=== PATIENT | male | born 1945 | race Caucasian/White ===

== ENCOUNTER 2023-11-15 13:13 | Inpatient (IN) | payer MEDICARE ==
[~2023-11-15] VITALS: Ht 172.7 cm; Wt 55.8 kg
[2023-11-15 19:03] VITALS: BP 160/83; TEMP 98.3; O2SAT 94
[2023-11-15] MEDS ORDERED: ACET-868 PO (19:30)
[2023-11-15] MEDS ORDERED: OMEP40CA21 PO (19:30)
[2023-11-15] MEDS ORDERED: SIMV10TA98 PO (19:30)
[2023-11-15] MEDS ORDERED: ONDA4TAB11 SL (19:30)
[2023-11-15] MEDS ORDERED: DONE10TA44 PO (19:30)
[2023-11-15] MEDS ORDERED: IPRA3AMP22 IH (19:30)
[2023-11-15] MEDS ORDERED: TIOT4MIS2 IH (19:30)
[2023-11-15] MEDS ORDERED: TAMS-12 PO (19:30)
[2023-11-15] MEDS ORDERED: AMLO2.5T2 PO (19:30)
[2023-11-15] MEDS ORDERED: MOME13HF IH (19:30)
[2023-11-15 20:07] VITALS: O2SAT 93
[2023-11-15] MEDS ORDERED: ONDANSETRON HCL/PF 4 MG/2 ML VIAL IVP PRN (20:30)
[2023-11-15] MEDS ORDERED: ACETAMINOPHEN 325 MG TABLET PO PRN (20:30)
[2023-11-15] MEDS ORDERED: MAG HYDROX/AL HYDROX/SIMETH 30 ML UDC PO PRN (20:30)
[2023-11-15] MEDS: ENOXAPARIN SODIUM 40 MG/0.4 ML DISP.SYRIN SQ SCH (21:27)
[2023-11-16] VITALS (16 sets, daily range): BP systolic 119–155; BP diastolic 65–82; TEMP 98–99; O2SAT 91–96
[2023-11-16] MEDS: ALBUTEROL HALF STRENGTH 1.25 MG/3 ML VIAL.NEB NEB SCH (00:20)
[2023-11-16] MEDS: ACETYLCYSTEINE 20% SOLN 800 MG/4 ML VIAL NEB SCH (00:20)
[2023-11-16] MEDS: IPRATROPIUM NEB FS 0.5 MG/2.5 ML AMPUL.NEB NEB SCH (00:20)
[2023-11-16] MEDS: methylPREDNISolone SOD SUCC 40 MG/ML VIAL IV SCH (00:33)
[2023-11-16 07:00] LABS: BASOPHILS % (AUTO) 0.1 % (0.0-2.0); HEMATOCRIT 40 % (39-51); HEMOGLOBIN 13.3 g/dL (13.5-17.5); LYMPHOCYTES # (AUTO) 0.3 K/uL (0.8-4.8); LYMPHOCYTES % (AUTO) 1.9 % (20.0-44.0); MEAN CORPUSCULAR HEMOGLOBIN 31 PG (26.0-33.0); MEAN CORPUSCULAR HGB CONC 33 g/dl (31.0-36.0); MEAN CORPUSCULAR VOLUME 94 fL (80-96); MONOCYTES # (AUTO) 0.2 K/uL (0.1-1.30); MONOCYTES % (AUTO) 1.4 % (2.0-12.0); NEUTROPHILS # (AUTO) 13.5 K/uL (1.8-8.9); NEUTROPHILS % (AUTO) 96.6 % (43.0-81.0); PLATELET COUNT (AUTO) 235 K/uL (150-450); RED BLOOD CELL COUNT(AUTO) 4.26 MIL/uL (4.5-6.0); RED CELL DISTRIBUTION WIDTH 14.6 % (11.5-15.0)
[2023-11-16] MEDS ORDERED: OMEPRAZOLE 20 MG CAPSULE.DR PEG SCH (07:30)
[2023-11-16 07:34] LABS: CHOLESTEROL 97 mg/dL (<200); HDL CHOLESTEROL 61 mg/dL (40-60); LDL 14 mg/dL (0-99); TRIGLYCERIDES 51 mg/dL (30-150)
[2023-11-16 07:37] LABS: CALCIUM, SERUM 8.6 mg/dL (8.5-10.1); CARBON DIOXIDE 23 mmol/L (21-32); CHLORIDE 111 mmol/L (98-107); CREATININE 0.6 mg/dL (0.6-1.3); GLUCOSE 99 mg/dL (74-106); MAGNESIUM 2.3 mg/dL (1.8-2.4); PHOSPHORUS 2.6 mg/dL (2.5-4.9); POTASSIUM 3.6 mmol/L (3.5-5.1); SODIUM SERUM 143 mmol/L (136-145); UREA NITROGEN, BLOOD 29 mg/dL (7-18)
[2023-11-16] MEDS: TAMSULOSIN 0.4 MG CAP.SR.24H PO SCH (08:20)
[2023-11-16] MEDS: PANTOPRAZOLE 40 MG TABLET.DR PO SCH (08:20)
[2023-11-16] MEDS: AMLODIPINE BESYLATE 2.5 MG TABLET PO SCH (08:20)
[2023-11-16] MEDS ORDERED: Medication Not On Formulary EA (Tiotropium Bromide (Spiriva Respimat) 2 PUFF) IH SCH (09:00)
[2023-11-16] MEDS: CEFTRIAXONE 1 G in IV D5W 50 ML IV SCH (09:01)
[2023-11-16 09:06] LABS: BAND % (MANUAL) 12 % (0.0-5.0); LYMPHOCYTES % (MANUAL) 3 % (16-48); MONOCYTES % (MANUAL) 1 % (0-11.0); NEUTROPHILS % (MANUAL) 84 (42-76); PLATELET ESTIMATE ADEQUATE
[2023-11-16] MEDS: AZITHROMYCIN 500 MG in IV D5W 250 ML IV SCH (09:43)
[2023-11-16] MEDS: ENSURE ENLIVE CHOC 237 ML CAN PO SCH (14:14)
[2023-11-16] MEDS: SIMVASTATIN 10 MG TABLET PO SCH (17:30)
[2023-11-16] MEDS: DONEPEZIL 5 MG TABLET PO SCH (21:26)
[2023-11-17] VITALS (20 sets, daily range): BP systolic 129–183; BP diastolic 66–95; TEMP 97.2–98.1; O2SAT 90–97
[2023-11-17 07:27] LABS: BASOPHILS % (AUTO) 0.1 % (0.0-2.0); EOSINOPHILS % (AUTO) 0.1 % (0.0-6.0); HEMATOCRIT 33 % (39-51); HEMOGLOBIN 11.6 g/dL (13.5-17.5); LYMPHOCYTES # (AUTO) 0.4 K/uL (0.8-4.8); LYMPHOCYTES % (AUTO) 2.3 % (20.0-44.0); MEAN CORPUSCULAR HEMOGLOBIN 32 PG (26.0-33.0); MEAN CORPUSCULAR HGB CONC 35 g/dl (31.0-36.0); MEAN CORPUSCULAR VOLUME 93 fL (80-96); MONOCYTES # (AUTO) 0.4 K/uL (0.1-1.30); MONOCYTES % (AUTO) 2.4 % (2.0-12.0); NEUTROPHILS # (AUTO) 16.2 K/uL (1.8-8.9); NEUTROPHILS % (AUTO) 95.1 % (43.0-81.0); PLATELET COUNT (AUTO) 228 K/uL (150-450); RED BLOOD CELL COUNT(AUTO) 3.58 MIL/uL (4.5-6.0); RED CELL DISTRIBUTION WIDTH 14.8 % (11.5-15.0); WHITE BLOOD COUNT (AUTO) 17.1 K/uL (4.3-11.0)
[2023-11-17 08:37] LABS: CREATININE 0.6 mg/dL (0.6-1.3); MAGNESIUM 2.1 mg/dL (1.8-2.4); PHOSPHORUS 1.4 mg/dL (2.5-4.9); POTASSIUM 3.6 mmol/L (3.5-5.1)
[2023-11-17] MEDS: VITAMINS A AND D 56.7 GM TUBE TP PRN (13:53)
[2023-11-17] MEDS: SILVER SULFADIAZINE 50 GM JAR TP SCH (16:27)
[2023-11-17] MEDS: K PHOS NEUTRAL 250 MG TABLET PO ONE (16:27)
[2023-11-17] MEDS ORDERED: CODEINE/PROMETHAZINE HCL 5 ML UDC PO PRN (21:00)
[2023-11-17] MEDS: hydrALAZINE HCL IV 20 MG VIAL IV PRN (21:19)
[2023-11-18] VITALS: BP 160/77; TEMP 97.8; O2SAT 92
[2023-11-18] MEDS: hydrALAZINE HCL IV 20 MG VIAL IV PRN (00:38)
[2023-11-18 03:44] VITALS: O2SAT 92
[2023-11-18 03:57] VITALS: O2SAT 92
[2023-11-18 04:00] VITALS: BP 154/78; TEMP 97.7; O2SAT 90
== END 2023-11-18 07:00 | disposition left against medical advice (07) | DRG 193 ==
LOC: TELE-TD 18:49
PROVIDERS: ADMIT Nurse Practitioner Acute Care; ATTEND Nurse Practitioner Acute Care
DX: J15.9 Unspecified bacterial pneumonia (principal); J96.21 Acute and chronic respiratory failure with hypoxia; J44.1 Chronic obstructive pulmonary disease with (acute) exacerbation; J44.0 Chronic obstructive pulmonary disease with (acute) lower respiratory infection; D45 Polycythemia vera; E78.5 Hyperlipidemia, unspecified; F43.10 Post-traumatic stress disorder, unspecified; I10 Essential (primary) hypertension; K57.30 Diverticulosis of large intestine without perforation or abscess without bleeding; F41.9 Anxiety disorder, unspecified; L58.9 Radiodermatitis, unspecified; C44.301 Unspecified malignant neoplasm of skin of nose; Z87.891 Personal history of nicotine dependence; Z20.822 Contact with and (suspected) exposure to COVID-19; L59.8 Other specified disorders of the skin and subcutaneous tissue related to radiation; Y84.2 Radiological procedure and radiotherapy as the cause of abnormal reaction of the patient, or of later complication, without mention of misadventure at the time of the procedure; T38.0X5A Adverse effect of glucocorticoids and synthetic analogues, initial encounter; Y92.89 Other specified places as the place of occurrence of the external cause
CPT/HCPCS: 36415; 71045-TC; 71250-TC; 80048-TC; 80061-TC; 83735-TC; 84100-TC; 85025-TC; 87081-TC; 94760-TC; 94799-TC; A4223; G0378; J0360; J0456; J0696; J1650; J2920; J7050; J7060